=== PATIENT | female | born 1980 | race Caucasian/White ===

== ENCOUNTER → 2019-01-06 | Outpatient (CLI) | payer OTHER | LOC: GMAL 10:23 | PROVIDERS: ATTEND Family Medicine | DX: R12 Heartburn (principal); R30.0 Dysuria ==

== ENCOUNTER → 2020-09-02 | Outpatient (CLI) | payer OTHER ==
--- NOTE | 2020-09-02 15:04 | MRI ---
EXAM DESCRIPTION: MRI left knee CLINICAL HISTORY: Knee injury. Pain and swelling. Fall COMPARISON: None. TECHNIQUE: Multiplanar, multisequence MR images of the left knee FINDINGS: Intraligamentous and periligamentous edema proximal MCL. Tear of the anterior superficial fibers over short segment. Surrounding soft tissue edema and swelling. No laxity of the majority of the superficial ligament. Tear of the deep meniscal femoral extension of the MCL ACL, PCL and fibular collateral ligaments are normal No medial or lateral meniscal tear. No high-grade chondrosis or osteochondral lesion femorotibial or patellofemoral Biceps femoris, popliteus and iliotibial band tendons are normal. Patellar and quadriceps tendon and tendons of the posterior medial knee are intact Small joint effusion. No intra-articular loose body IMPRESSION: Grade 2 MCL sprain/partial tear proximally Electronically signed by: Rashaad Hernandez MD 09/02/2020 3:03 PM [facility]
== END ==
LOC: MRI 14:05
PROVIDERS: ATTEND Nurse Practitioner Family
DX: S83.412D Sprain of medial collateral ligament of left knee, subsequent encounter (principal)